=== PATIENT | female | born 1985 | race Hispanic/Latino ===

== ENCOUNTER 2024-02-13 20:47 | Emergency (ER) | payer SELFPAY ==
[2024-02-13 20:50] VITALS: BP 128/90
--- NOTE | 2024-02-13 22:30 | ED.GENMED ---
History of Present Illness
General
Chief Complaint: Abdominal Pain
Source: patient
Exam Limitations: other (Language barrier)
Time Seen by Provider: 02/13/24 22:02
History of Present Illness
History of Present Illness:
This is a 38 year old female that comes in with c/o vaginal bleeding. Via the language line the patient states that she has been bleeding since January. States that sometimes this is heavy. States that she has lower abd pain and her hips hurt.
States that her breast are painful and like they have stones in them. States that she has had a headache. states that she also has some bleeding with clots. States that she has had fever with chills, SOB, headache that goes from her forehead to the
top of her head. States that she has occasionally been SOB. Denies any chest pain, nausea, vomiting, diarrhea, urinary burning.
Past History
Past History
ED Past Medical History: None; Negative Asthma, HTN, Hypercholesterolemia or NIDDM
ED Past Surgical History:
Social History
Tobacco: Non-smoker
Alcohol: Occasional
Personal: Single
Living: with family
Review of Systems
Review of Systems
All Other Systems: ROS reviewed and negative except as documented in HPI and ROS
Constitutional: Reports fever and chills
EENT: Reports no symptoms
Respiratory: Reports trouble breathing; Denies cough
Cardiac: Reports no symptoms; Denies chest pain
ABD/GI: Reports abdominal pain (Lower); Denies nausea, vomiting or diarrhea
: Reports no symptoms; Denies dysuria, frequency or urgency
Musculoskeletal: Reports no symptoms
Skin: Reports no symptoms
Neurological: Reports dizzy and headache
Psychiatric: Reports no symptoms
Phy Exam
General Physical Exam
General Presentation: no apparent distress
General age: appears stated age
General Skin: warm and dry
General Habitus: normal
General Mental: alert
General Hydration: appears well hydrated
ENT Exam
ENT Exam: TM's normal, pharynx normal and neck supple
Eye Exam
Eye Exam: EOMI
Cardiovascular Exam
Cardiovascular Exam: regular rate/rhythm, no edema, no murmur and normal peripheral pulses
Pulmonary Exam
Pulmonary Exam: lungs clear, no respiratory distress, no rales, chest non tender, no crackles, no rhonchi, no wheezing and no cough
Gastrointestinal Exam
Gastrointestinal Exam: normal bowel sounds, soft, no organomegaly, no pulsatile mass, non distended and tender (Lower abd tenderness bilateral with palpation. )
Genitourinary Exam Female
Exam Female: no bleeding (Noted)
Musculoskeletal Exam
Musculoskeletal Exam: full ROM and no edema
Skin Exam
Skin Exam: normal color, warm/dry, no rash and no petechia
Psychiatric Exam
Psychiatric Exam: normal mood/affect
Course
Orders/Labs/Results
Orders:
Orders
02/13/24 22:17
0.9% Sodium Chloride 1000 ml [Nss] 1,000 ml IV BOLUS
Ketorolac [Toradol] 30 mg IV NOW STA
Test Result ONCE
US Pelvis W Transvag Combined Urgent
Reason For Exam: ABNOMAL VAGINAL BLEEDING
02/13/24 23:01
Complete Blood Count/With Diff Urgent
Comprehensive Metabolic Panel Urgent
HCG, Serum Qualitative Screen Urgent
Chlamydia/GC by PCR Urgent
NICKOLAS Source: Urine
Specimen Description:
Source:: URINE
Date Specimen was Collected: 02/13/24
Time Specimen was Collected: 22:35
02/13/24 23:02
Urinalysis Reflex To Culture Urgent
Date Specimen was Collected: 02/13/24
Time Specimen was Collected: 22:35
Urine Microscopic Reflex Cult Urgent
Abnormal Lab Results
02/13/24 02/13/24
23:01 23:02
Hct 35.1 L %
(37.0-47.0)
Calcium 10.5 H mg/dl
(8.4-10.2)
Ur Occult Blood Reflex 2+ A
(Negative)
Urine Bacteria (Reflex) Few A
(Negative)
02/13/24 23:01
02/13/24 23:01
CBC normal. calcium slightly elevated. Urine negative for infection. HCG negative.
Vital Signs
Initial and Last Documented VS:
Initial Vital Signs
Temp Pulse Resp BP Pulse Ox
99 F 70 22 128/90 97
02/13/24 20:50 02/13/24 20:50 02/13/24 20:50 02/13/24 20:50 02/13/24 20:50
Last Documented Vital Signs
Temp Pulse Resp BP Pulse Ox
99 F 62 16 106/66 100
02/13/24 20:50 02/13/24 23:16 02/13/24 23:16 02/13/24 23:03 02/13/24 23:45
MDM/Problems Addressed
Differential Diagnosis Includes:
, Uterine fibroids,
MDM/Problems Addressed:
This is a 38 year old female that comes in with c/o bleeding. Via the language line she states that she has been bleeding since January 24. States that her breast feel like there are stones in the breast. States that she has had some clots and a
headache.
Will check labs and get US.
Back into see patient and significant other. Via the language line explained to patient that her blood work is normal. US is negative for any acute process. There is a small clot in the canal. Patient to follow up with the DIRECTOR OF PLACEMENT or the free [facility].
Patient to increase her water intake. Patient states that she is feeling better after pain medication. Return with any concerns
Chronic conditions affecting care:
NA
Acute Exacerbation and/or Progression of Chronic Illness:
NA
*Radiology
Radiology exam reviewed: radiology read reviewed (US night hawk- 3mm echogenic focus within the endometrial canal, nonspecific however could represent a polyp or focal blood clot. Small amount of fluid within the endometrial canal. The endometrial
stripe measures 6mm. Normal size ovaries containing doppler flow. No free fluid. )
*Pulse Oximetry
Patient hypoxic: no
*EKG
Interpreted by ED Provider?: NA
Rate: EKG- N/A
*Ortho Assistant Interpretation
Rate: Ortho Assistant- N/A
*Critical Care Note
Total Time (30-74mins, 75-104mins- exclusive of procedures): Not Applicable
ED Attending Note
-
Portions of this chart may have been created with voice recognition software.� Occasional wrong word or��sound alike� substitutions may have occurred due to the inherent limitations of voice recognition software.
Discharge Plan
Departure
Patient Disposition: Home (Routine Discharge)
Date of Disposition: 02/14/24
Time of Disposition: 00:58
Patient with high blood pressure during this ER visit?: No
Condition: Good
Covid-19: Not Applicable
Discharge Problem:
Abnormal vaginal bleeding
Instructions: Heavy Periods (DC), Bleeding Between Periods
Referrals:
[facility] - Call in 1-3 days for appt
Julio C Morrison MD [Active] - Call in 1-3 days for appt
NONE,* [Family Provider] -
Activity Restrictions/Additional Instructions:
As discussed, your blood work is normal. Your urine is negative for any infection and your Ultrasound is negative for any acute process. There may be a small blood clot in the canal. Please increase your water intake to 8-8oz glasses daily. Please
follow up with the recreation professor or the free clinic for further evaluation. You have been given information for both. You may use Ibuprofen 600mg every 6 hours with food for pain as needed and Tylenol 1000mg every 6 hours for pain. IF YOU HAVE ANY OTHER
CONCERNS PLEASE RETURN TO THE EMERGENCY ROOM.
Interventions
Interventions:
*Risk Screen - Suicide Last Done: 02/13/24 20:50
*General Assessment Last Done: 02/13/24 23:16
*Neglect/Abuse Screening Last Done: 02/13/24 20:50
ED- Fall Risk Assessment Last Done: 02/13/24 23:17
*ED COVID-19 Vaccine History Last Done: 02/13/24 21:48
KS-Kravvz-Vbytzivzbp Assessment Last Done: 02/13/24 23:17
Discharge Date and Time
Print Language: [place]
[2024-02-13] MEDS: TORADOL 30 MG IV (22:56)
[2024-02-13] MEDS: NSS 1000 IV (22:58)
[2024-02-13 23:03] VITALS: BP 106/66
[2024-02-13 23:11] LABS: % Basophils 0.6 % (0-2); % Eosinophils 4.5 % (0-6); % Immature Granulocytes 0.1 % (0-0.5); % Lymphocytes 30.8 % (20.5-51.1); % Monocytes 5.4 % (1.7-9.3); % Neutrophils 58.6 % (42.2-75.2); Absolute Basophils 0.1 10^3/uL (0-0.2); Absolute Eosinophils 0.4 10^3/uL (0-0.7); Absolute Lymphocytes 2.6 10^3/uL (1.2-3.4); Absolute Monocytes 0.5 10^3/uL (0.1-0.6); Hematocrit 35.1 % (37.0-47.0); Hemoglobin 12.3 g/dL (12.0-16.0); Mean Corpuscular Hgb 28.7 pg (27.0-31.0); Mean Corpuscular Volume 81.8 fL (81.0-99.0); Mean Platelet Volume 9.8 fL (7.4-10.4); Nucleated Red Blood Cells % 0 %; Platelet Count 335 10^3/uL (130-400); Red Blood Cell Count 4.29 10^6/uL (4.20-5.40); Red Cell Dist. Width 14.1 % (11.5-14.5); White Blood Cell Count 8.5 10^3/uL (4.8-10.8)
[2024-02-13 23:12] LABS: Urine Albumin Negative (Neg - Trace); Urine Bilirubin Negative (Negative); Urine Character Clear (Clear); Urine Color Yellow; Urine Glucose Negative (Negative); Urine Ketone Negative (Negative); Urine Leukocyte Negative (Negative); Urine Nitrite Negative (Negative); Urine Occult Blood 2+ (Negative); Urine Specific Gravity 1.025 (<1.030); Urine Urobilinogen Negative (Neg - 1+)
[2024-02-13 23:22] LABS: HCG, Serum Qualitative Screen Negative
[2024-02-13 23:23] LABS: Urine Bacteria Few (Negative); Urine Red Blood Cell 0-2 /HPF (0-2); Urine Squamous Cell 0-2 /LPF (Few); Urine White Cell 0-2 /HPF (0-5)
[2024-02-13 23:27] LABS: ALT (SGPT) 19 U/L (0-35); AST (SGOT) 27 U/L (14-36); Albumin 4.5 g/dl (3.5-5.0); Alkaline Phosphatase 100 U/L (38-126); Blood Urea Nitrogen 16 mg/dl (7-17); Calcium 10.5 mg/dl (8.4-10.2); Carbon Dioxide 25 mmol/L (22-30); Chloride 104 mmol/L (98-107); Glucose 97 mg/dl (70-99); Potassium 4.4 mmol/L (3.5-5.1); Sodium 138 mmol/L (135-145); Total Bilirubin 0.2 mg/dl (0.2-1.3); Total Protein 7.7 g/dl (6.3-8.2); eGFR > 60.00
[2024-02-14 01:12] VITALS: BP 97/59
== END 2024-02-14 01:18 | disposition home or self-care (01) ==
LOC: EMR 20:47
PROVIDERS: Clinical Nurse Specialist Family Health; EMERGENCY PHYSICIAN Emergency Medicine
DX: N93.9 Abnormal uterine and vaginal bleeding, unspecified (principal); R10.30 Lower abdominal pain, unspecified; R42 Dizziness and giddiness; R51.9 Headache, unspecified; R50.9 Fever, unspecified; R06.02 Shortness of breath; N64.4 Mastodynia
CPT/HCPCS: 99284; 96374; 96361; 76830; 76856; 80053; 81003; 81015; 84703; 85025; 87491; 87591

== ENCOUNTER → 2024-08-29 08:20 | Outpatient (REF) | payer OTHER, SELFPAY ==
[2024-08-29 09:26] LABS: Hematocrit 38.3 % (37.0-47.0); Hemoglobin 13.3 g/dL (12.0-16.0); Mean Corp Hgb Conc. 34.7 g/dL (33.0-37.0); Mean Corpuscular Hgb 29.2 pg (27.0-31.0); Mean Platelet Volume 10.3 fL (7.4-10.4); Platelet Count 298 10^3/uL (130-400); Red Blood Cell Count 4.56 10^6/uL (4.20-5.40); Red Cell Dist. Width 15.1 % (11.5-14.5); White Blood Cell Count 7.1 10^3/uL (4.8-10.8)
[2024-08-29 10:22] LABS: TSH Reflex To Free T4 6.31 uIU/ml (0.47-4.68)
[2024-08-29 10:23] LABS: ALT (SGPT) 21 U/L (0-35); AST (SGOT) 26 U/L (14-36); Albumin 4.7 g/dl (3.5-5.0); Alkaline Phosphatase 117 U/L (38-126); Blood Urea Nitrogen 12 mg/dl (7-17); Carbon Dioxide 18 mmol/L (22-30); Chloride 104 mmol/L (98-107); Glucose 99 mg/dl (70-99); Potassium 4.9 mmol/L (3.5-5.1); Sodium 137 mmol/L (135-145); Total Bilirubin 0.5 mg/dl (0.2-1.3); eGFR > 60.00
[2024-08-29 10:52] LABS: Free T4 0.95 ng/dl (0.78-2.19)
== END ==
LOC: REG 08:20
PROVIDERS: ATTENDING PHYSICIAN Nurse Practitioner Adult Health
DX: Z00.00 Encounter for general adult medical examination without abnormal findings (principal)
CPT/HCPCS: 36415; 80053; 84439; 84443; 85027

== ENCOUNTER → 2024-10-07 08:24 | Outpatient (REF) | payer OTHER, SELFPAY | LOC: HWRAD 08:24 | PROVIDERS: ATTENDING PHYSICIAN Obstetrics & Gynecology Gynecology | DX: N93.9 Abnormal uterine and vaginal bleeding, unspecified (principal) | CPT/HCPCS: 76830; 76856 ==

== ENCOUNTER 2024-11-06 09:59 | Emergency (ER) | payer OTHER, SELFPAY ==
[2024-11-06] VITALS (7 sets, daily range): BP systolic 91–112; BP diastolic 59–64; BMI 26.4
[2024-11-06 10:33] LABS: % Basophils 0.4 % (0-2); % Eosinophils 3.4 % (0-6); % Immature Granulocytes 0.1 % (0-0.5); % Lymphocytes 24.2 % (20.5-51.1); % Monocytes 6.4 % (1.7-9.3); % Neutrophils 65.5 % (42.2-75.2); Absolute Eosinophils 0.2 10^3/uL (0-0.7); Absolute Lymphocytes 1.7 10^3/uL (1.2-3.4); Absolute Monocytes 0.5 10^3/uL (0.1-0.6); Absolute Neutrophils 4.6 10^3/uL (1.4-6.5); Hematocrit 34.7 % (37.0-47.0); Mean Corp Hgb Conc. 31.7 g/dL (33.0-37.0); Mean Corpuscular Hgb 25.5 pg (27.0-31.0); Mean Corpuscular Volume 80.3 fL (81.0-99.0); Mean Platelet Volume 10.1 fL (7.4-10.4); Nucleated Red Blood Cells % 0 %; Platelet Count 303 10^3/uL (130-400); Red Blood Cell Count 4.32 10^6/uL (4.20-5.40)
[2024-11-06 10:39] LABS: HCG, Serum Qualitative Screen Negative
[2024-11-06 10:43] LABS: ALT (SGPT) 15 U/L (0-35); AST (SGOT) 21 U/L (14-36); Alkaline Phosphatase 88 U/L (38-126); Blood Urea Nitrogen 13 mg/dl (7-17); Calcium 8.9 mg/dl (8.4-10.2); Carbon Dioxide 23 mmol/L (22-30); Chloride 110 mmol/L (98-107); Glucose 98 mg/dl (70-99); Lipase 154 U/L (23-300); Potassium 3.7 mmol/L (3.5-5.1); Sodium 142 mmol/L (135-145); Total Bilirubin 0.4 mg/dl (0.2-1.3); eGFR > 60.00
--- NOTE | 2024-11-06 11:36 | ED.GENMED ---
History of Present Illness
General
Chief Complaint: Abdominal Symptoms
Source: patient
Time Seen by Provider: 11/06/24 11:06
History of Present Illness
History of Present Illness:
[place] Language Line Disability Manager Chidi [id number] used for interpretation
39-year-old female with a distant past medical history of mild gastritis presenting to the emergency department for evaluation of upper abdominal pain described to be a burning sensation, colicky, waxes and wanes but mostly constant for the last 2
days, last night had some mild nausea but no vomiting, this morning symptoms continued prompting her to come to the ER for further evaluation. She does state in the similar location to where she previously had pain from gastritis but notes that
this is much more severe. Patient did attempt some qbou-puo-ydaehst medication (unclear as to what medication even with the language line interpretation) but states she did not have any relief with this. She denies any other symptoms including
fevers, chills, rigors, bowel changes or urinary symptoms. No change in oral intake. Surgical history was noted for previous but no other surgeries. Social history noncontributory. Patient notes a secondary concern of suspected poison
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
Past History
Past History
ED Past Medical History: None; Negative Asthma, HTN, Hypercholesterolemia or NIDDM
ED Past Surgical History:
Social History
Tobacco: Non-smoker
Alcohol: Occasional
Drug: None
Personal:
Living: with family
Phy Exam
Physical Exam
Physical Exam:
GENERAL: Alert , in no apparent distress but appears uncomfortable, tearful
EYE: clear conjunctiva b/l
HEAD: NCAT
ENT: o/p clr, mmm.
CARDIAC: Regular rate and rhythm .
LUNGS: Clear breath sounds bilaterally, no acute respiratory distress, no wheezes/rales/rhonchi
ABDOMEN: Soft, epigastric ttp, no r/g, no cvat, negative Harris sign, no tenderness at McBurney's point
NEUROLOGICAL: Alert and oriented
SKIN: Warm and dry, skin intact.
MUSCULOSKELETAL: well perfused.
PSYCH: Normal and appropriate interaction.
Scores
Heart Failure Risk
Heart Failure Risk Score: Not Applicable
Heart Score for Chest Pain Patients
STEMI patient?: Not applicable
Withdrawal Assessment of Alcohol
Withdrawal Assessment Completed?: Not applicable
Course
Orders/Labs/Results
Orders:
Orders
11/06/24 10:15
Test Result ONCE
11/06/24 10:20
Complete Blood Count/With Diff Urgent
Comprehensive Metabolic Panel Urgent
HCG, Serum Qualitative Screen Urgent
Comment: Notify provider if positive test present
Lipase Urgent
11/06/24 11:42
Ketorolac [Toradol] 30 mg IV NOW STA
Mag Hydrox/Al Hydrox/Simeth [Maalox] 30 ml Phenobarb/Hyoscy/Atropine/Scop [] 10 ml Viscous Lidocaine 2% [Xylocaine Viscous Cup] 10 ml PO NOW
US Abdomen Complete/Upper Urgent
Comment:
Reason For Exam: colicky upper abd/epigatric pain
11/06/24 11:44
Mag Hydrox/Al Hydrox/Simeth [Maalox] 30 ml .ROUTE .STK-MED ONE
Phenobarb/Hyoscy/Atropine/Scop [] 10 ml .ROUTE .STK-MED ONE
Viscous Lidocaine 2% [Xylocaine Viscous Cup] 15 ml .ROUTE .STK-MED ONE
Abnormal Lab Results
11/06/24
10:20
Hgb 11.0 L g/dL
(12.0-16.0)
Hct 34.7 L %
(37.0-47.0)
MCV 80.3 L fL
(81.0-99.0)
MCH 25.5 L pg
(27.0-31.0)
MCHC 31.7 L g/dL
(33.0-37.0)
RDW 15.0 H %
(11.5-14.5)
Chloride 110 H mmol/L
(98-107)
Creatinine 0.5 L mg/dL
(0.6-1.0)
11/06/24 10:20
11/06/24 10:20
Vital Signs
Initial and Last Documented VS:
Initial Vital Signs
Temp Pulse Resp BP Pulse Ox
99.0 F 76 16 112/59 99
11/06/24 10:10 11/06/24 10:10 11/06/24 10:10 11/06/24 10:10 11/06/24 10:10
Last Documented Vital Signs
Temp Pulse Resp BP Pulse Ox
99.0 F 76 16 99/59 99
11/06/24 10:10 11/06/24 10:10 11/06/24 10:10 11/06/24 16:00 11/06/24 16:15
MDM/Problems Addressed
Differential Diagnosis Includes:
GERD, gastritis, peptic ulcer disease, biliary colic, less concern for diverticulitis/colitis or an atypical ACS presentation
MDM/Problems Addressed:
39-year-old female presenting to the ER for evaluation of upper abdominal pain for the last 2 days, somewhat colicky in nature, pretty clearly reproducible on exam within the epigastric region. She notes it distant history of gastritis but that
this pain feels worse. Labs initiated on arrival are reassuring showing no leukocytosis, no transaminitis and normal renal function. Patient test negative. Will check an ultrasound given the reported colicky nature however I have more
suspicion for a GERD/gastritis/peptic ulcer disease as a more likely diagnosis. Will treat with Toradol and GI cocktail. Reassessment following
*Radiology
Radiology exam reviewed: radiology read reviewed
*Pulse Oximetry
Patient hypoxic: no
*Critical Care Note
Total Time (30-74mins, 75-104mins- exclusive of procedures): Not Applicable
Patient Management
Escalation/DeEscalation of care consider admission/obs:
[place] language line QR [id number], [place], used for interpretation
Patient's ultrasound without any acute findings. She notes relief with medicines provided her while here. I suspect gastritis/GERD/peptic ulcer disease to be most likely diagnosis. Pepcid and Maalox prescription sent to pharmacy. Patient aware
of return precautions to the ER.
ED Attending Note
-
Portions of this chart may have been created with voice recognition software.� Occasional wrong word or��sound alike� substitutions may have occurred due to the inherent limitations of voice recognition software.
Discharge Plan
Departure
Patient Disposition: Home (Routine Discharge)
Date of Disposition: 11/06/24
Time of Disposition: 16:12
Patient with high blood pressure during this ER visit?: No
Discharge Problem:
Upper abdominal pain
Instructions: Abdominal Pain
Prescriptions:
New
famotidine [Pepcid] 20 mg tablet
20 mg PO DAILY Qty: 30 0RF
alum-mag hydroxide-simeth [Maalox Maximum Strength] 400-400-40 mg/5 mL suspension
10 ml PO TID PRN (Reason: indigestion) Qty: 1000 0RF
Referrals:
UNKNOWN - PT DOES,NOT KNOW [Family Provider] -
Interventions
Interventions:
*Risk Screen - Suicide Last Done: 11/06/24 10:10
*General Assessment Last Done: 11/06/24 10:10
*Neglect/Abuse Screening Last Done: 11/06/24 10:10
*ED- Fall Risk Assessment Last Done: 11/06/24 12:21
*ED COVID-19 Vaccine History Last Done: 11/06/24 10:10
*Nursing Disposition Last Done: 11/06/24 16:25
VX-Xmhcav-Zatrphgfxm Assessment Last Done: 11/06/24 11:42
Discharge Date and Time
Print Language: [place]
[2024-11-06] MEDS: MAALOX 50 PO (11:45)
[2024-11-06] MEDS: TORADOL 30 MG IV (11:47)
== END 2024-11-06 16:37 | disposition home or self-care (01) ==
LOC: EMR 09:59
PROVIDERS: EMERGENCY PHYSICIAN Emergency Medicine
DX: R10.10 Upper abdominal pain, unspecified (principal); Z87.19 Personal history of other diseases of the digestive system
CPT/HCPCS: 99284; 96374; 76700; 80053; 83690; 84703; 85025